=== PATIENT | male | born 1950 | race African-American/Black ===

== ENCOUNTER 2016-05-10 17:18 | Emergency (ER) | payer OTHER ==
--- NOTE | ~2016-05-10 | CR72 ---
[facility] A Service of [facility] & [facility] RADIOLOGY TEXT RESULTS PATIENT: SWETA JENSEN LOCATION: [facility] : 48 UNIT #: [id number] AGE: [address]: Alfred Ferrara MD SEX: M ORDER DR: [id number] [facility] [address] [place], [place] [address] [id number] E MR#: [id number] Acc #: [id number] NAME: SWETA JENSEN : 1950 SEX: M STUDY DATE/TIME: 05/10/2016 15:44 UNIT: [facility] ROOM: STUDY DESCRIPTION: CR Chest Single View Portable Attending Physician: Alfred Ferrara M.D. Ordering Physician: Alfred Ferrara M.D. Primary Care Physician: Soo Primary Care Physician MEDICAL IMAGING REPORT This report is preliminary unless electronic signature is present EXAM Portable chest INDICATIONS 66-year-old male with shortness of breath, cough and chest pain for 2 days. COMPARISON 01/09/2016 FINDINGS Slightly increased interstitial opacities. Heart size stable. Visualized osseous structures are unremarkable. IMPRESSION Slightly increased interstitial opacities. This may reflect interstitial edema. Correlate clinically Dictated by... Darek Ivy M.D. THIS IS AN ELECTRONICALLY VERIFIED REPORT Darek Ivy M.D. at 05/11/2016 8:59 AM [facility]/indu TD: 05/10/2016 18:22 JOB #: [id number] MEDICAL IMAGING REPORT Page 1 of 1 COPY
--- NOTE | ~2016-05-10 | EKG ---
PATIENT: SWETA JENSEN UNIT #: [id number] Ventricular Rate: 75 BPM Atrial Rate: 75 BPM P-R Interval: 176 ms QRS Duration: 88 ms Q-T Interval: 370 ms QTC Calculation(Bezet): 413 ms P [place]: -4 degrees Calculated R [place]: 64 degrees Calculated T [place]: 41 degrees Diagnosis Line: Normal sinus rhythm Diagnosis Line: Nonspecific ST and T wave abnormality Diagnosis Line: Abnormal ECG Diagnosis Line: When compared with ECG of 10-MAY-2016 15:53, Diagnosis Line: (unconfirmed) Diagnosis Line: Nonspecific ST and T wave abnormality is new Diagnosis Line: Confirmed by JEANNE MCNAMARA MD ([id number]) on 05/10/2016 Diagnosis Line: 11:00:56 PM INTERPRETING MD: NAIMA NG
[2016-05-10 17:04] LABS: BASOPHIL# 0.1 X10e3 (0-0.3); BASOPHIL% 0.7 % (0-2.5); EOSINOPHIL# 0.5 X10e3 (0-0.7); EOSINOPHIL% 5.5 % (0.0-7.0); HEMATOCRIT 43.5 % (38.0-50.0); HEMOGLOBIN 14.3 gm/dL (13.0-16.0); LYMPHOCYTE# 2.8 X10e3 (1.0-3.5); LYMPHOCYTE% 33.2 % (17.0-45.0); MEAN CELL VOLUME 85.3 FL (83-96); MEAN CORPUSCULAR HGB CONC 32.8 g/dL (30-36); MEAN PLATELET VOLUME 7.1 FL (6.5-11.5); MONOCYTE# 0.7 X10e3 (0-1.0); MONOCYTE% 7.9 % (3.0-12.0); NEUTROPHIL# 4.4 X10e3 (1.5-7.1); NEUTROPHIL% 52.7 % (40-75); PLATELET COUNT 254 X10e3 (140-420); RED CELL DISTRIBUTION WIDTH 13.2 % (11.0-15.5); WHITE BLOOD COUNT 8.4 X10e3 (4.0-10.5)
[2016-05-10 17:07] LABS: DIFF IND NO
[2016-05-10 17:14] LABS: POC - CKMB 2.3 ng/mL (0.0-7.9); POC - TROPONIN <0.05 ng/mL (<=0.05)
[~2016-05-10 17:18] MED LIST: ALBUTEROL17 GM INH; LEVAQUIN PO; LORTAB 5/500 TA1 TA1 PO; NO MEDICATIONS; PHENERGAN25 MG PO; PREDNISONE PO; PROAIR HFA8.5 GM INH
[2016-05-10 17:30] LABS: ALBUMIN SERUM 3.7 g/dL (3.5-5.0); ALKALINE PHOSPHATASE 87 U/L (32-92); ALT (SGPT) 15 U/L (10-40); AST (SGOT) 18 U/L (10-42); BILIRUBIN,TOTAL 0.8 mg/dL (0.2-2.0); BLOOD UREA NITROGEN 7 mg/dL (9-23); CALCIUM SERUM 8.7 mg/dL (8.4-10.2); CARBON DIOXIDE 27 mmol/L (22-31); CHLORIDE 105 mmol/L (100-111); GLOM FILT RATE Estimated 89.2 mL/min (>60); GLUCOSE FASTING 101 mg/dL (70-110); POTASSIUM 3.7 mmol/L (3.5-5.1); PROTEIN TOTAL SERUM 7.3 g/dL (6.0-8.3); SODIUM 139 mmol/L (135-145)
[2016-05-10 17:31] LABS: BILIRUBIN, DIRECT <0.1 mg/dL (0.0-0.2); BILIRUBIN,INDIRECT 0.7 mg/dL (0.0-0.9)
== END 2016-05-10 18:40 | disposition home or self-care (01) ==
LOC: CED 17:18
PROVIDERS: Emergency Medicine
DX: J44.1 Chronic obstructive pulmonary disease with (acute) exacerbation (principal)
CPT/HCPCS: 36415; 71010; 80048; 80076; 82553; 84484; 85025; 93005; 94640; 99284

== ENCOUNTER 2016-06-07 02:50 | Emergency (ER) | payer OTHER ==
--- NOTE | ~2016-06-07 | CR72 ---
[facility] A Service of [facility] RADIOLOGY TEXT RESULTS PATIENT: SWETA JENSEN LOCATION: [facility] : 46 UNIT #: [id number] AGE: [address]: Duane Garcia MD SEX: M ORDER DR: [id number] [place], [place] [address] [id number] E MR#: [id number] Acc #: [id number] NAME: SWETA JENSEN : 1950 SEX: M STUDY DATE/TIME: 06/07/2016 2:45 UNIT: [facility] ROOM: STUDY DESCRIPTION: CR Chest Single View Portable Attending Physician: Duane Garcia M.D. Ordering Physician: Duane Garcia M.D. Primary Care Physician: No Primary Care Physician MEDICAL IMAGING REPORT This report is preliminary unless electronic signature is present EXAM AP portable chest. DATE 06/07/2016 HISTORY Shortness of breath tonight. Asthma. COMPARISON AP portable chest, 05/10/2016. FINDINGS Mild basilar airspace disease is present. Low-volume inspiration. No pleural effusion or pneumothorax is seen. Heart size is within normal limits. IMPRESSION Low volume inspiration with mild bibasilar airspace disease, favored to represent atelectasis. Dictated by... Lela Puckett M.D. THIS IS AN ELECTRONICALLY VERIFIED REPORT Lela Puckett M.D. at 06/07/2016 10:04 PM [facility]/lazaro TD: 06/07/2016 09:45 JOB #: [id number] [facility] A Service of [facility] RADIOLOGY TEXT RESULTS PATIENT: SWETA JENSEN LOCATION: [facility] : 46 UNIT #: [id number] AGE: [address]: Duane Garcia MD SEX: M ORDER DR: MEDICAL IMAGING REPORT Page 1 of 1 COPY
== END 2016-06-07 03:54 | disposition home or self-care (01) ==
LOC: CED 02:50
DX: J45.909 Unspecified asthma, uncomplicated (principal)
CPT/HCPCS: 71010; 94640; 99283